=== PATIENT | male | born 1990 | race Caucasian/White ===

== ENCOUNTER 2017-03-11 17:42 | Emergency (ER) | payer OTHER ==
[~2017-03-11] VITALS: Ht 167.6 cm; Wt 99.8 kg
[2017-03-11 17:55] VITALS: BP 145/75
[2017-03-11] MEDS ORDERED: PROCHLORPERAZINE 10 MG/2 ML VIAL IM ONE (20:15)
[2017-03-11] MEDS ORDERED: diphenhydrAMINE 50 MG/ML VIAL IM ONE (20:15)
[2017-03-11 20:55] VITALS: BP 130/80
== END 2017-03-11 20:55 | disposition home or self-care (01) ==
LOC: MED 17:42
DX: G44.209 Tension-type headache, unspecified, not intractable (principal); R03.0 Elevated blood-pressure reading, without diagnosis of hypertension
CPT/HCPCS: 96372; 99284; J0780; J1200

== ENCOUNTER 2017-03-16 21:03 | Emergency (ER) | payer OTHER ==
[~2017-03-16] VITALS: Ht 167.6 cm; Wt 99.8 kg
[2017-03-16 21:07] VITALS: BP 137/77
--- NOTE | 2017-03-17 02:00 | NUR ---
AMBULATED TO ER OF2
--- NOTE | 2017-03-17 02:19 | NUR ---
PT BIB FAMILY C/O RT. NECK PAIN X 2WEEKS DAY. WAS SEEN BY ER MD 4 DAYS AGO FOR HEADACHE WITH PAIN MED PRESCIPTION. NO MED HX. PT DENIES N/V/D; SKIN IS INTACT, PINK/WARM/DRY; AAOX4, PERRL, WITH EVEN AND STEADY GAIT; LUNGS CLEAR BL, BREATHING UNLABORED; HR EVEN AND REGULAR, BL PERIPHERAL PULSES PRESENT; BS ACTIVE X4, NO TENDERNESS TO PALPATION. PT DENIES ANY FEVER, CP, SOB, OR COUGH AT THIS TIME; PT STATES 4/10 PAIN AT THIS TIME; VSS; PATIENT POSITIONED FOR COMFORT; HOB ELEVATED; BEDRAILS UP X2; BED DOWN.
--- NOTE | 2017-03-17 02:25 | NUR ---
Patient appears to be resting comfortably in bed. Vital Signs within normal limits. Respirations even and unlabored.
--- NOTE | 2017-03-17 02:26 | NUR ---
Patient discharged with v/s stable. Written and verbal after care instructions given and explained. Patient verbalized understanding. Ambulatory with steady gait. All questions addressed prior to discharge. Advised to follow up with PMD.
[2017-03-17 02:30] VITALS: BP 138/72
== END 2017-03-17 02:26 | disposition home or self-care (01) ==
LOC: MED 21:03
DX: J02.9 Acute pharyngitis, unspecified (principal); K12.0 Recurrent oral aphthae
CPT/HCPCS: 99281

== ENCOUNTER 2018-03-23 22:28 | Emergency (ER) | payer OTHER ==
[~2018-03-23] VITALS: Ht 167.6 cm; Wt 101.2 kg
[2018-03-23 22:36] VITALS: BP 157/84
--- NOTE | 2018-03-23 22:39 | NUR ---
TO LOBY A/W BED, GEENA VILLARREAL ERMD NOTED
--- NOTE | 2018-03-23 23:04 | NUR ---
PT TAKEN TO BED 4
--- NOTE | 2018-03-23 23:06 | NUR ---
Dr. Arteaga evaluating patient at bedside.
[2018-03-23] MEDS ORDERED: LORazepam 1 MG TAB PO ONE (23:10)
--- NOTE | 2018-03-23 23:11 | NUR ---
PT BIB SELF C/O SOB AND DIZZINESS X3 WEEKS. RR EVEN AND UNLABORED, PT DENIES COUGH, BL BS CLEAR THROUGH OUT. PT IS AMBULATORY EVEN STEADY GAIT. PT IS AWAKE SITTING IN BED, ACTING APPROPRIATE IN NO RESPIRATORY DISTRESS.
[2018-03-23 23:45] VITALS: BP 144/74
== END 2018-03-23 23:19 | disposition home or self-care (01) ==
LOC: MED 22:28
DX: F41.9 Anxiety disorder, unspecified (principal)
CPT/HCPCS: 99283

== ENCOUNTER 2019-02-10 20:34 | Emergency (ER) | payer OTHER ==
[~2019-02-10] VITALS: Ht 167.6 cm; Wt 101.2 kg
[2019-02-10 20:40] VITALS: BP 133/71
--- NOTE | 2019-02-10 20:40 | NUR ---
TO BED # 11 AMBULATORY
--- NOTE | 2019-02-10 20:52 | NUR ---
AT BEDSIDE TO STEPHIE AGUDELO
--- NOTE | 2019-02-10 20:53 | NUR ---
PT ARRIVED TO ED C/O LEFT ARM X 1 WEEK. PT STATES HE HAS MUSCLE WEAKNESS ON LEFT MORE THAN RIGHT ARM. DENIES ANY TRUAMA OR INJURY. NO OBVIOUS DEFORMITY NOTED ON EXTREM. NO CHEST PAIN OR SOB. LUNG SOUNDS CLEAR ALL THROUGHOUT. VSS. RADIAL PULSES PRESENT BILAT. ARM STRENGTH EQUAL BIAL. CAP REFILL <3 NKA. NO PMH.
[2019-02-10] MEDS ORDERED: KETOROLAC 30 MG/ML VIAL IM ONE (20:55)
[2019-02-10] MEDS ORDERED: DIAZEPAM 5 MG TAB PO ONE (20:55)
--- NOTE | 2019-02-10 21:27 | NUR ---
US AT BEDSIDE.
--- NOTE | 2019-02-10 22:34 | NUR ---
PT REFUSED SLING.
[2019-02-10 22:40] VITALS: BP 125/70
--- NOTE | 2019-02-10 22:40 | NUR ---
Patient discharged with v/s stable. Written and verbal after care instructions given and explained. Patient alert, oriented and verbalized understanding of instructions. Ambulatory with steady gait. All questions addressed prior to discharge. ID band removed. Patient advised to follow up with PMD. Rx of VALIUM, NAPROSYN given. Patient educated on indication of medication including possible reaction and side effects. Opportunity to ask questions provided and answered.
== END 2019-02-10 22:40 | disposition home or self-care (01) ==
LOC: MED 20:34
DX: S46.312A Strain of muscle, fascia and tendon of triceps, left arm, initial encounter (principal); X58.XXXA Exposure to other specified factors, initial encounter; Y93.89 Activity, other specified; Y92.89 Other specified places as the place of occurrence of the external cause; Y99.8 Other external cause status
CPT/HCPCS: 73060; 93971; 96372; 99284; J1885; Q0092